=== PATIENT | male | born 1935 | race Two or more races ===

== ENCOUNTER 2016-09-21 14:12 | Inpatient (IN) | payer OTHER ==
[~2016-09-21] VITALS: Ht 170.2 cm; Wt 83.0 kg
[2016-09-21] MEDS ORDERED: IV NS 0.9% 500 ML BAG IV ONE (14:30)
[2016-09-21 14:38] LABS: BASOPHILS % (AUTO) 0.6 % (0.0-2.0); DIFF TOTAL % 100 %; EOSINOPHILS # (AUTO) 0.2 /CMM (0.0-0.7); EOSINOPHILS % (AUTO) 2.2 % (0.0-6.0); HEMATOCRIT 36 % (39-51); HEMOGLOBIN 11.8 g/dL (13.5-17.5); LYMPHOCYTES % (AUTO) 28.4 % (20.0-44.0); MEAN CORPUSCULAR HEMOGLOBIN 29 PG (26.0-33.0); MEAN CORPUSCULAR HGB CONC 33 g/dl (31.0-36.0); MEAN CORPUSCULAR VOLUME 87 fL (80-96); MONOCYTES # (AUTO) 0.5 /CMM (0.1-1.30); MONOCYTES % (AUTO) 7.2 % (2.0-12.0); NEUTROPHILS # (AUTO) 4.4 /CMM (1.8-8.9); NEUTROPHILS % (AUTO) 61.6 % (43.0-81.0); PLATELET COUNT (AUTO) 125 /CMM (150-450); RED BLOOD CELL COUNT(AUTO) 4.06 MIL/uL (4.5-6.0); WHITE BLOOD COUNT (AUTO) 7.1 K/uL (4.3-11.0)
[2016-09-21] MEDS ORDERED: IV NS 0.9% 500 ML IV ONE (14:40)
[2016-09-21] MEDS ORDERED: IV SET PRIMARY 1 EA INFUS.SET MC ONE (14:40)
[2016-09-21 14:53] LABS: ANION GAP 12 (5-14); CALCIUM, SERUM 8.7 mg/dL (8.5-10.1); CARBON DIOXIDE 27 mmol/L (21-32); CHLORIDE 101 mmol/L (98-107); GLUCOSE 165 mg/dL (74-106); POTASSIUM 4.1 mmol/L (3.5-5.1); SODIUM SERUM 136 mmol/L (136-145); UREA NITROGEN, BLOOD 25 mg/dL (7-18)
[2016-09-21 14:56] LABS: INR 0.99 (0.87-1.13); PROTHROMBIN TIME 10.4 SECS (9.5-12.7)
[2016-09-21 15:00] LABS: TROPONIN I < 0.017 ng/mL (0.00-0.056)
[2016-09-21] MEDS ORDERED: OXYB5TAB11 PO (15:27)
[2016-09-21] MEDS ORDERED: CLOP75TA2 PO (15:27)
[2016-09-21] MEDS ORDERED: GLIP10TA11 PO (15:27)
[2016-09-21] MEDS ORDERED: TAMS0.4C34 PO (15:27)
[2016-09-21] MEDS ORDERED: HYDR-552 PO (15:27)
[2016-09-21] MEDS ORDERED: SITA100T PO (15:27)
[2016-09-21] MEDS ORDERED: LOSA100T15 PO (15:27)
[2016-09-21] MEDS ORDERED: ATOR20TA PO (15:27)
[2016-09-21] MEDS ORDERED: OMEP20TA68 PO (15:27)
[2016-09-21] MEDS ORDERED: PREG75CA PO (15:27)
[2016-09-21] MEDS ORDERED: METF850T2 PO (15:27)
[2016-09-21] MEDS ORDERED: METO25TA6 PO (15:27)
[2016-09-21] MEDS ORDERED: IV 1/2NS 1000 ML 1,000 ML IV PRN (15:58)
[2016-09-21] MEDS ORDERED: MAGNESIUM HYDROXIDE 30 ML UDC PO PRN (16:00)
[2016-09-21] MEDS ORDERED: ONDANSETRON HCL/PF 4 MG/2 ML VIAL IVP PRN (16:00)
[2016-09-21] MEDS ORDERED: Z GUARD REMEDY 2 OZ OINT TP PRN (16:00)
[2016-09-21] MEDS ORDERED: MAG HYDROX/AL HYDROX/SIMETH 30 ML UDC PO PRN (16:00)
[2016-09-21] MEDS ORDERED: HYDROCODONE/APAP 5/325MG 1 EACH TABLET PO PRN (16:00)
[2016-09-21] MEDS ORDERED: ACETAMINOPHEN 325 MG TABLET PO PRN (16:00)
[2016-09-21] MEDS ORDERED: ENOXAPARIN SODIUM 40 MG/0.4 ML DISP.SYRIN SQ SCH ×2 (16:09→21:00)
[2016-09-21 16:15] VITALS: BP 182/75
[2016-09-21 17:32] LABS: PHOSPHORUS 3.7 mg/dL (2.5-4.9)
[2016-09-21 17:36] LABS: THYROID STIMULATING HORMONE 1.825 uIU/mL (0.358-3.74)
[2016-09-21] MEDS: METFORMIN 850 MG TABLET PO SCH (17:40)
[2016-09-21] MEDS: METOPROLOL TARTRATE 25 MG TABLET PO SCH (17:40)
[2016-09-21] MEDS: PREGABALIN 25 MG CAPSULE PO SCH (17:40)
[2016-09-21] MEDS ORDERED: IV SET PRIMARY PUMP SET 1 EA INFUS.SET MC ONE (17:48)
[2016-09-21] MEDS: IV NS 0.9% 1,000 ML IV PRN (17:57)
[2016-09-21 20:04] VITALS: BP 160/82
[2016-09-21] MEDS ORDERED: SECONDARY IV SET 1 EA INFUS.SET MC ONE (20:54)
[2016-09-21] MEDS ORDERED: ZOLPIDEM TARTRATE 5 MG TABLET PO PRN (21:00)
[2016-09-21] MEDS ORDERED: DEXTROSE 50%-WATER 50 ML DISP.SYRIN IV PRN (21:00)
[2016-09-21] MEDS ORDERED: Magnesium 1GM/D5W 100ML PREMIX PIGGYBACK IV ONE ×2 (21:00→22:00)
[2016-09-21] MEDS: BLOOD SUGAR DIAGNOSTIC 1 EACH STRIP IN SCH (21:07)
[2016-09-21] MEDS: Magnesium 1GM/D5W 100ML PREMIX 100 ML IV SCH ×2 (21:07→22:37)
[2016-09-21] MEDS ORDERED: ATORVASTATIN 10 MG TABLET PO SCH (22:00)
[2016-09-22] VITALS: BP 152/73
[2016-09-22] MEDS: IV NS 0.9% 1,000 ML IV PRN (00:23)
[2016-09-22 04:00] VITALS: BP 161/76
[2016-09-22] MEDS: BLOOD SUGAR DIAGNOSTIC 1 EACH STRIP IN SCH ×2 (06:50→12:04)
[2016-09-22 07:09] VITALS: BP 190/86
[2016-09-22] MEDS ORDERED: PANTOPRAZOLE 40 MG TABLET.DR PO SCH (07:30)
[2016-09-22 07:48] LABS: BASOPHILS % (AUTO) 0.3 % (0.0-2.0); DIFF TOTAL % 100 %; EOSINOPHILS # (AUTO) 0.1 /CMM (0.0-0.7); EOSINOPHILS % (AUTO) 1.6 % (0.0-6.0); HEMATOCRIT 37 % (39-51); LYMPHOCYTES # (AUTO) 2.5 /CMM (0.8-4.8); LYMPHOCYTES % (AUTO) 30.8 % (20.0-44.0); MEAN CORPUSCULAR HEMOGLOBIN 29 PG (26.0-33.0); MEAN CORPUSCULAR HGB CONC 33 g/dl (31.0-36.0); MEAN CORPUSCULAR VOLUME 89 fL (80-96); MONOCYTES # (AUTO) 0.5 /CMM (0.1-1.30); MONOCYTES % (AUTO) 6.5 % (2.0-12.0); NEUTROPHILS # (AUTO) 4.9 /CMM (1.8-8.9); NEUTROPHILS % (AUTO) 60.8 % (43.0-81.0); PLATELET COUNT (AUTO) 132 /CMM (150-450); RED BLOOD CELL COUNT(AUTO) 4.11 MIL/uL (4.5-6.0)
[2016-09-22] MEDS: METFORMIN 850 MG TABLET PO SCH (08:15)
[2016-09-22] MEDS: PREGABALIN 25 MG CAPSULE PO SCH (08:15)
[2016-09-22] MEDS: METOPROLOL TARTRATE 25 MG TABLET PO SCH (08:19)
[2016-09-22 08:32] LABS: THYROID STIMULATING HORMONE 0.91 uIU/mL (0.358-3.74)
[2016-09-22 08:34] VITALS: BP_SYST 188; BP_SYST 189; BP_SYST 190; BP_DIAS 86; BP_DIAS 87; BP_DIAS 91
[2016-09-22 08:41] LABS: CALCIUM, SERUM 8.3 mg/dL (8.5-10.1); CREATININE 0.9 mg/dL (0.6-1.3); PHOSPHORUS 3.1 mg/dL (2.5-4.9); POTASSIUM 4.2 mmol/L (3.5-5.1)
[2016-09-22] MEDS ORDERED: glipiZIDE 10 MG TABLET PO SCH (09:00)
[2016-09-22] MEDS ORDERED: LOSARTAN POTASSIUM 50 MG TABLET PO SCH (09:00)
[2016-09-22] MEDS ORDERED: CLOPIDOGREL BISULFATE 75 MG TABLET PO SCH (09:00)
[2016-09-22] MEDS ORDERED: OXYBUTYNIN CHLORIDE 5 MG TABLET PO SCH (09:00)
[2016-09-22] MEDS ORDERED: SITAGLIPTIN PHOSPHATE 50 MG TABLET PO SCH (09:00)
[2016-09-22] MEDS ORDERED: TAMSULOSIN 0.4 MG CAP.SR.24H PO SCH (09:00)
[2016-09-22] MEDS: hydrALAZINE HCL 50 MG TABLET PO SCH ×2 (09:05→12:22)
[2016-09-22 12:22] VITALS: BP 188/68
== END 2016-09-22 16:34 | disposition home or self-care (01) | DRG 74 ==
LOC: ER 14:14 → TELE 15:31 → MED 09-22 10:54
DX: G90.8 Other disorders of autonomic nervous system (principal); R55 Syncope and collapse; D64.9 Anemia, unspecified; I10 Essential (primary) hypertension; Z95.1 Presence of aortocoronary bypass graft; I25.10 Atherosclerotic heart disease of native coronary artery without angina pectoris; I11.9 Hypertensive heart disease without heart failure; E11.9 Type 2 diabetes mellitus without complications; E66.9 Obesity, unspecified; M19.90 Unspecified osteoarthritis, unspecified site
CPT/HCPCS: 36415; 70450-TC; 71010-TC; 80048-TC; 80061-TC; 82306; 82728-TC; 82962-TC; 83540-TC; 83735-TC; 84100-TC; 84439-TC; 84443-TC; 84484-TC; 85025-TC; 85730-TC; 87081-TC; 93307-TC; 93880-TC; A4606; J1650; J3475; J7030; J7040; Z7610